=== PATIENT | female | born 1930 | race Caucasian/White ===

== ENCOUNTER 2016-08-15 11:36 | Emergency (ER) | payer MEDICARE, MEDICAID ==
[2016-08-15 12:10] LABS: #Basophils 0.1 thou/uL (0.0-0.2); #Eosinphils 0.4 thou/uL (0.0-0.7); #Lymphocytes 3.8 thou/uL (1.20-3.40); #Monocytes 0.6 thou/uL (0.11-0.59); #Neutrophils 5.4 thou/uL (1.40-6.50); %Basophils 1.2 % (0.0-1.0); %Eosinophils 3.4 % (0.0-10.0); %Monocytes 5.6 % (0.0-10.0); Hematocrit 37.1 % (36.0-47.0); Mean Platelet Volume 6.8 fL (7.4-10.4); Red Blood Cell (RBC) Count 3.84 mill/uL (4.20-5.40); White Blood Cell (WBC) Count 10.2 thou/uL (4.8-10.8)
[2016-08-15 12:25] LABS: ALT (SGPT) 11 U/L (0-55); AST (SGOT) 14 U/L (5-34); Alkaline Phosphatase 91 U/L (40-150); Anion Gap 17 mmol/L (10-20); BUN (Urea Nitrogen) 22 mg/dL (9.8-20.1); Bilirubin, Total 0.4 mg/dL (0.2-1.2); Calc. Creatinine Clearance 0 mL/min (70-130); Calcium 9.2 mg/dL (7.8-10.44); Carbon Dioxide 21 mmol/L (23-31); Chloride 107 mmol/L (98-107); Estimated GFR-MDRD 57; Globulin 3.3 g/dL (2.4-3.5)
[2016-08-15 12:27] LABS: Troponin I Less than 0.010 ng/mL (< 0.028)
== END 2016-08-15 12:44 | disposition home or self-care (01) ==
LOC: BURERS 11:36
DX: E11.65 Type 2 diabetes mellitus with hyperglycemia (principal); F03.90 Unspecified dementia, unspecified severity, without behavioral disturbance, psychotic disturbance, mood disturbance, and anxiety; Z86.73 Personal history of transient ischemic attack (TIA), and cerebral infarction without residual deficits; Z87.891 Personal history of nicotine dependence; Z79.82 Long term (current) use of aspirin; Z79.84 Long term (current) use of oral hypoglycemic drugs; Z79.899 Other long term (current) drug therapy
CPT/HCPCS: 36416; 80053; 82553; 84484; 85025; 93005

== ENCOUNTER 2016-09-11 14:03 | Emergency (ER) | payer MEDICARE, MEDICAID ==
[2016-09-11 14:37] LABS: #Basophils 0.1 thou/uL (0.0-0.2); #Eosinphils 0.7 thou/uL (0.0-0.7); #Lymphocytes 3.7 thou/uL (1.20-3.40); #Monocytes 0.9 thou/uL (0.11-0.59); #Neutrophils 5.4 thou/uL (1.40-6.50); %Basophils 1.3 % (0.0-1.0); %Eosinophils 6.1 % (0.0-10.0); %Monocytes 8.2 % (0.0-10.0); Hematocrit 34.9 % (36.0-47.0); Mean Platelet Volume 6.3 fL (7.4-10.4); Red Blood Cell (RBC) Count 3.77 mill/uL (4.20-5.40); White Blood Cell (WBC) Count 10.7 thou/uL (4.8-10.8)
[2016-09-11 14:40] LABS: Lactic Acid - Sepsis 1.9 mmol/L (0.5-2.2)
[2016-09-11 14:45] LABS: ALT (SGPT) 7 U/L (0-55); AST (SGOT) 13 U/L (5-34); Alkaline Phosphatase 86 U/L (40-150); Anion Gap 16 mmol/L (10-20); BUN (Urea Nitrogen) 31 mg/dL (9.8-20.1); Bilirubin, Total 0.3 mg/dL (0.2-1.2); Calc. Creatinine Clearance 0 mL/min (70-130); Calcium 8.8 mg/dL (7.8-10.44); Carbon Dioxide 21 mmol/L (23-31); Chloride 107 mmol/L (98-107); Estimated GFR-MDRD 55; Globulin 3.2 g/dL (2.4-3.5); Protein, Total 6.8 g/dL (5.8-8.1)
[2016-09-11 14:46] LABS: Troponin I Less than 0.010 ng/mL (< 0.028)
[2016-09-11 14:47] LABS: Bilirubin Negative (Negative); Blood, Urine Negative (Negative); Glucose, Urine (Dipstick) Negative (Negative); Ketone, Urine Negative (Negative); Nitrite Negative (Negative); Protein, Urine (Dipstick) Negative (Neg-Trace); Urobilinogen 0.2 mg/dL (0.2-1.0)
--- NOTE | 2016-09-11 16:51 | RAD ---
PORTABLE CHEST: Date: 09-11-16 FINDINGS: An AP portable film at 1443 is compared with a 12-18-15 study. The heart size is stable. There is no congestive change, pleural effusion or acute pulmonary infilt rate. The trachea is midline. The bony structures showed no acute change. IMPRESSION: No acute thoracic finding. POS: HOME
--- NOTE | 2016-09-11 16:55 | CT ---
CT OF THE BRAIN WITHOUT CONTRAST: Date: 09-11-16 Comparison: 12-18-15 done at [facility]. FINDINGS: An old left parietooccipital stroke is seen. The resulting encephalomalacia is fairly extensive and potentially impacts the visual cortex on the left side. Diffuse atrophy with mild ventricular dila tation is present, commensurate with the degree of atrophy present. There has been no private branch exchange service advisor t he interval. Some hyperlucent areas in the deep white matter are typical of chronic microvascular i schemia. There is no acute bleeding. No definite acute stroke or mass was seen. The calvarium dulce ears intact. IMPRESSION: Old left parietal occipital stroke with no acute findings. POS: HOME
== END 2016-09-11 15:25 | disposition home or self-care (01) ==
LOC: BURERS 14:03
DX: B34.9 Viral infection, unspecified (principal); F03.90 Unspecified dementia, unspecified severity, without behavioral disturbance, psychotic disturbance, mood disturbance, and anxiety; E11.9 Type 2 diabetes mellitus without complications; Z87.891 Personal history of nicotine dependence; Z79.82 Long term (current) use of aspirin; Z79.899 Other long term (current) drug therapy
CPT/HCPCS: 36416; 51701; 70450; 71010; 80053; 81003; 82553; 83605; 84443; 84484; 85025; 85652; 87040; 93005; 36415-59; A4353

== ENCOUNTER 2016-09-17 10:11 | Outpatient (CLI) | payer MEDICARE, MEDICAID ==
[2016-09-17 12:00] LABS: #Basophils 0.1 thou/uL (0.0-0.2); #Eosinphils 0.8 thou/uL (0.0-0.7); #Lymphocytes 3.3 thou/uL (1.20-3.40); #Monocytes 0.7 thou/uL (0.11-0.59); #Neutrophils 5.4 thou/uL (1.40-6.50); %Eosinophils 7.4 % (0.0-10.0); %Monocytes 6.6 % (0.0-10.0); Hematocrit 36.2 % (36.0-47.0); Mean Platelet Volume 5.7 fL (7.4-10.4); Red Blood Cell (RBC) Count 3.85 mill/uL (4.20-5.40); White Blood Cell (WBC) Count 10.3 thou/uL (4.8-10.8)
[2016-09-17 12:24] LABS: ALT (SGPT) 11 U/L (0-55); AST (SGOT) 13 U/L (5-34); Alkaline Phosphatase 91 U/L (40-150); Anion Gap 12 mmol/L (10-20); BUN (Urea Nitrogen) 27 mg/dL (9.8-20.1); Bilirubin, Total 0.3 mg/dL (0.2-1.2); Calc. Creatinine Clearance 0 mL/min (70-130); Calcium 9.1 mg/dL (7.8-10.44); Carbon Dioxide 27 mmol/L (23-31); Chloride 107 mmol/L (98-107); Estimated GFR-MDRD 48; Globulin 2.7 g/dL (2.4-3.5); LDL Cholesterol, Calculated 87 mg/dL; Protein, Total 6.4 g/dL (5.8-8.1)
[2016-09-17 12:37] LABS: Hemoglobin A1c 6.6 % (4.0-6.0)
== END 2016-09-17 10:12 | disposition home or self-care (01) ==
LOC: HPCALD 10:11
PROVIDERS: ATTEND Family Medicine
DX: E78.5 Hyperlipidemia, unspecified (principal); E03.9 Hypothyroidism, unspecified; E11.9 Type 2 diabetes mellitus without complications; I10 Essential (primary) hypertension
CPT/HCPCS: 36415; 80053; 80061; 83036; 84439; 84443; 85025

== ENCOUNTER 2018-03-18 12:45 | Emergency (ER) | payer MEDICARE, MEDICAID ==
[2018-03-18 13:20] LABS: #Basophils 0.1 thou/uL (0.0-0.2); #Eosinphils 0.6 thou/uL (0.0-0.7); #Lymphocytes 3.2 thou/uL (1.20-3.40); #Monocytes 0.7 thou/uL (0.11-0.59); #Neutrophils 4.9 thou/uL (1.40-6.50); %Basophils 1.3 % (0.0-1.0); %Eosinophils 6.7 % (0.0-10.0); %Lymphocytes 33.7 % (21.0-51.0); %Neutrophils 51.4 % (42.0-75.0); Mean Corpuscular HGB CONC 32.2 g/dL (32.0-36.0); Mean Corpuscular Hemoglobin 30.9 pg (27.0-31.0); Mean Platelet Volume 6.8 fL (7.4-10.4); Platelet Count 335 thou/uL (130-400); Red Blood Cell (RBC) Count 3.56 mill/uL (4.20-5.40); White Blood Cell (WBC) Count 9.6 thou/uL (4.8-10.8)
[2018-03-18 13:38] LABS: ALT (SGPT) 17 U/L (8-55); AST (SGOT) 17 U/L (5-34); Albumin 3.7 g/dL (3.4-4.8); Alkaline Phosphatase 126 U/L (40-150); Anion Gap 14 mmol/L (10-20); BUN (Urea Nitrogen) 26 mg/dL (9.8-20.1); Bilirubin, Total 0.5 mg/dL (0.2-1.2); Calc. Creatinine Clearance 0 mL/min (70-130); Calcium 9.2 mg/dL (7.8-10.44); Carbon Dioxide 25 mmol/L (23-31); Chloride 106 mmol/L (98-107); Estimated GFR-MDRD 39; Globulin 3.1 g/dL (2.4-3.5); Glucose 155 mg/dL (83-110); Protein, Total 6.8 g/dL (6.0-8.3); Sodium 140 mmol/L (136-145)
--- NOTE | 2018-03-18 18:18 | RAD ---
PORTABLE CHEST: 03/18/18 Comparison is made with the 09/30/17 study. The heart is normal in size. The aorta is somewhat tortuous as before. Right paratracheal density is assumed to be great vessels and has not changed in appearance from the prior study. The lungs are ailin ar. No acute infiltrate or effusion was seen. The right base was not seen as well as possible. IMPRESSION: No acute finding. POS: HOME
== END 2018-03-18 14:00 | disposition home or self-care (01) ==
LOC: BURERS 12:45
DX: R07.81 Pleurodynia (principal); F03.90 Unspecified dementia, unspecified severity, without behavioral disturbance, psychotic disturbance, mood disturbance, and anxiety; E11.9 Type 2 diabetes mellitus without complications; Z86.73 Personal history of transient ischemic attack (TIA), and cerebral infarction without residual deficits; Z87.891 Personal history of nicotine dependence; Z79.899 Other long term (current) drug therapy; Z79.82 Long term (current) use of aspirin
CPT/HCPCS: 36415; 71045; 80053; 82553; 84484; 85025; 93005

== ENCOUNTER 2019-02-08 09:12 | Inpatient (IN) | payer MEDICARE, MEDICAID ==
[2019-02-08] MEDS ORDERED: Ketorolac Tromethamine 30 MG/ML VIAL ONE (09:50)
[2019-02-08 10:09] LABS: #Basophils 0.1 thou/uL (0.0-0.2); #Eosinphils 0.1 thou/uL (0.0-0.7); #Lymphocytes 1.7 thou/uL (1.20-3.40); #Monocytes 0.7 thou/uL (0.11-0.59); #Neutrophils 16.2 thou/uL (1.40-6.50); %Basophils 0.4 % (0.0-1.0); %Eosinophils 0.7 % (0.0-10.0); %Lymphocytes 9.1 % (21.0-51.0); %Monocytes 3.6 % (0.0-10.0); %Neutrophils 86.3 % (42.0-75.0); Hemoglobin 11.5 g/dL (12.0-16.0); Mean Corpuscular Hemoglobin 30.4 pg (27.0-31.0); Mean Corpuscular Volume 98.3 fL (78.0-98.0); Mean Platelet Volume 6.3 fL (7.4-10.4); Platelet Count 277 thou/uL (130-400); RBC Distribution Width 12.1 % (11.5-14.5); Red Blood Cell (RBC) Count 3.77 mill/uL (4.20-5.40); White Blood Cell (WBC) Count 18.8 thou/uL (4.8-10.8)
[2019-02-08 10:24] LABS: ALT (SGPT) 15 U/L (8-55); AST (SGOT) 18 U/L (5-34); Albumin 3.6 g/dL (3.4-4.8); Alkaline Phosphatase 125 U/L (40-150); Anion Gap 16 mmol/L (10-20); BUN (Urea Nitrogen) 29 mg/dL (9.8-20.1); Bilirubin, Total 0.3 mg/dL (0.2-1.2); CK (CPK) 84 U/L (29-168); Calc. Creatinine Clearance 0 mL/min (70-130); Calcium 9.2 mg/dL (7.8-10.44); Carbon Dioxide 24 mmol/L (23-31); Chloride 105 mmol/L (98-107); Estimated GFR-MDRD 49; Glucose 210 mg/dL (83-110); Potassium 4.6 mmol/L (3.5-5.1); Protein, Total 6.6 g/dL (6.0-8.3); Sodium 140 mmol/L (136-145)
--- NOTE | 2019-02-08 10:58 | CT ---
Exam: Head CT without contrast HISTORY: Fall. Pain. COMPARISON: 09/30/2017 FINDINGS: Hemorrhage: No intraparenchymal hemorrhage or extra-axial hematoma. Brain parenchyma: Diffuse cerebral brain volume loss. Malacic changes involving the left occipital lo be. Additional mild malacic change involving the right parietal lobe medially. Remainder of the cerebrum demonstrates preservation of cortical thomas-white matter differentiation.Confluent white patrick er hypodensities due to chronic small vessel ischemic change. Ventricular system: Stable appearance and configuration. Calvarium: Intact. Sinuses and mastoid air cells: Adequate aeration. IMPRESSION: 1. No intracranial posttraumatic sequelae 2. Age-appropriate atrophy 3. Chronic small vessel ischemic changes white matter 4. Stable malacic change involving the left occipital lobe and right parietal lobe.
[2019-02-08] MEDS ORDERED: Ketorolac Tromethamine 30 MG/ML VIAL IVP PRN (12:25)
[2019-02-08] MEDS ORDERED: Sodium Chloride 0.9% 1,000 ML IV SCH ×2 (12:30→18:53)
[2019-02-08] MEDS ORDERED: Prevnar 13-Val Conj/PF 0.5 ML SYRINGE IM ONE (13:45)
[2019-02-08] MEDS ORDERED: Mupirocin 2% Ointment 22 GM Tube TOP SCH (15:00)
[2019-02-08 16:17] LABS: Bilirubin Negative (Negative); Blood, Urine Trace (Negative); Glucose, Urine (Dipstick) Negative (Negative); Leukocyte Moderate (Negative); Nitrite Positive (Negative); Protein, Urine (Dipstick) Trace mg/dL (Neg-Trace); Urobilinogen 0.2 mg/dL (Less than 2)
[2019-02-08 16:23] LABS: Clarity Cloudy (Clear)
[2019-02-08 16:24] LABS: Bacteria/HPF 3+ HPF (None Seen); RBC/HPF 0-3 HPF (0-3); Squamous Epithelial 0-3 HPF (0-3); WBC/HPF Greater Than 50 HPF (0-3)
--- NOTE | 2019-02-08 17:19 | RAD ---
LEFT KNEE FOUR VIEWS: Date: 02-08-19 FINDINGS: No fracture or joint effusion was seen. The joint space appears normal. Dense arteriosclerosis is see n in the distal SFA and popliteal arteries. IMPRESSION: No acute finding. POS: HOME
--- NOTE | 2019-02-08 17:23 | RAD ---
RIGHT HUMERUS TWO VIEWS: Date: 02-08-19 FINDINGS: A fracture is present through the surgical neck of the humerus. While the bone in the region is sligh tly lucent, I do not believe it is a pathologic fracture but just several fragments are involved. The re is relatively little displacement. IMPRESSION: Surgical neck fracture. POS: HOME
--- NOTE | 2019-02-08 17:24 | RAD ---
LEFT HAND THREE VIEWS: Date: 02-08-19 FINDINGS: Degenerative changes are seen in the IP joints of the fingers. No gross fracture was identified. The carpal bones and distal radius and ulna are seen incompletely, but there are no findings to strongly suggest fracture here. IMPRESSION: Degenerative changes but no acute findings. POS: HOME
--- NOTE | 2019-02-08 17:25 | RAD ---
RIGHT KNEE FOUR VIEWS: Date: 02-08-19 Comparison: Films of the left knee. FINDINGS: No fracture, dislocation or joint effusion was seen. Dense calcification of the distal SFA and poplit eal arteries is apparent. The joint surfaces were unremarkable. IMPRESSION: No acute finding. POS: HOME
[2019-02-08] MEDS ORDERED: Mupirocin 2% Ointment 22 GM Tube TOP PRN (17:32)
--- NOTE | 2019-02-08 17:35 | RAD ---
PELVIS: Date: 02-08-19 FINDINGS: A portable film was done at 1037. The sensitivity to fine detail is somewhat low. There is certainly no gross fractures apparent in the bony pelvis or hips. The hip joints were symmetrical. The pubic ri ngs appear intact and the synthesis shows no widening or off set. The sacrum and SI joints are evalua elsie less well, but what could be seen was unremarkable. IMPRESSION: Slightly lower sensitivity study showing no acute finding. POS: HOME
--- NOTE | 2019-02-08 17:49 | RAD ---
PORTABLE CHEST: Date: 02-08-19 An AP portable film at 1006 is compared with a 03-18-18 study. FINDINGS: The heart is normal in size given AP projection and shallow inspiration. Calcification is seen in the aortic arch. The lungs seem fully inflated. No lobar consolidation was seen. There is some slight el evation of the right hemidiaphragm, but this not a very deep breath. I would need to see a better ins piration film to rule in or out pathology in the right base. A fracture of the surgical neck of the r ight humerus is apparent on this film. IMPRESSION: Shallow inspiration which reduces sensitivity, particularly in the right base. Fracture of the surgic al neck of the right humerus. POS: HOME
[2019-02-08] MEDS ORDERED: Dextrose 5% in Water 1,000 ML IV PRN (18:50)
[2019-02-08] MEDS ORDERED: Dextrose 50% Abboject 50 ML SYRINGE SLOW IVP PRN (18:50)
[2019-02-08] MEDS: VIMPAT 50 MG PO SCH (20:47)
[2019-02-08] MEDS: Atorvastatin Calcium 40 MG TAB PO SCH (20:49)
[2019-02-08] MEDS: HYDROcodone/Acetaminophen 5/325 mg Tablet PO PRN (20:50)
[2019-02-08] MEDS: metFORMIN 500 MG TAB PO SCH (20:50)
[2019-02-08] MEDS ORDERED: levETIRAcetam 250 MG TAB PO SCH (21:00)
[2019-02-08] MEDS ORDERED: VIMPAT 50 MG PO SCH ×2 (21:00)
[2019-02-08] MEDS ORDERED: Atorvastatin Calcium 10 MG TAB PO SCH (21:00)
--- NOTE | 2019-02-09 03:39 | HP ---
PRIMARY CARE PHYSICIAN: Terrell Arciniega MD CHIEF COMPLAINT: Found down, with right humeral surgical neck fracture and leukocytosis. HISTORY OF PRESENT ILLNESS: Ms. Franz is an 88-year-old white female with multiple CVA with right hemiparesis, non-Hodgkin lymphoma with metastasis, diabetes mellitus, hypertension, and total care for end-stage dementia. She was on her usual state of health until 7:30 this morning when she was found down on the floor by her caregiver, she had urinated and defecated on herself, unsure if she had a seizure or fell from the bed. Her caregiver called [facility] to assess her condition, but due to possible neck injuries, EMS was summoned. At the ED, her vital signs showed BP of 167/88, pulse rate of 57, respirations of 20, unlabored. Her O2 saturation was 95% on room air, they found multiple abrasions on her extremities, she was slightly drowsy, but arousable. Her labs demonstrated WBC of 18.8, hemoglobin of 11, hematocrit of 37.1, platelet count of 277, neutrophils of 86.3. Comp met showed sodium of 140, potassium of 4.6, chloride of 105, carbon dioxide of 24, BUN of 29, creatinine of 1.07, glucose of 210, calcium of 9.2, AST of 18, ALT of 15. Creatine kinase was 84. Troponin was 0.026. Her urinalysis showed yellow cloudy urine with positive nitrite, moderate leukocyte esterase, wbc's greater than 50, with 3+ bacteria. She had a CT of the brain, which showed chronic small vessel ischemic white matter changes, stable malacic change involving the left occipital and right parietal lobes. Chest x-ray showed shallow inspiration, calcification seen on aortic arch, no lobar consolidation, slight elevation of right hemidiaphragm. Right humerus x-ray showed fracture on the surgical neck, with little displacement. The patient was placed on standard sling. Due to acute change on her condition and extent of her fracture and with her multiple comorbid condition, recommendation was to admit the patient. We will need to monitor for any infection, control of pain, monitor for further episodes of seizures and to assist caregiver on how to take care of the patient at home, she qualified for 2 midnights' stay. This afternoon, she appears comfortable except for discomfort on her right arm fracture and multiple abrasions. She denies any chest pain or shortness of breath. PAST MEDICAL HISTORY: 1. Multiple CVA.with right hemiparesis 2. History of seizure secondary to multiple CVA. 3. Hypertension. 4. Diabetes mellitus. 5. Moderate left carotid stenosis. 6. Non-Hodgkin lymphoma with metastasis. 7. Hyperlipidemia. 8. Chronic diastolic heart failure. 9. History of tobacco abuse. 10. Right eye blindness. 11. Chronic kidney disease, stage 2. 12. Mild mitral and tricuspid valve regurgitation. 13. Advanced end-stage dementia, total care. MEDICATIONS: 1. Aspirin 81 mg daily. 2. Lipitor 40 mg at bedtime. 3. Plavix 75 mg daily. 4. Lisinopril 5 mg daily. 5. Zoloft. 6. Imdur 60 mg daily. 7. Synthroid 50 mcg daily. 8. Metformin 500 mg at bedtime. 9. Vimpat 50 mg b.i.d. 10. Seroquel 25 mg daily. ALLERGIES: NO KNOWN DRUG ALLERGIES. PAST SURGICAL HISTORY: Hysterectomy. FAMILY HISTORY: Negative for diabetes mellitus or heart disease. SOCIAL HISTORY: The patient lives at home with 24-hour caregiver, her daughter is her Sujatha Longoria is her medical [id number]. The patient is a DNAR. She denies tobacco, alcohol, or drug use. REVIEW OF SYSTEMS: CONSTITUTIONAL: Negative for weight gain or loss, negative for fever. SKIN: Positive for multiple abrasions, skin tear, bruising. Negative for rash. EYES: Positive for right eye blindness. Negative for eye discharge. EAR, NOSE, AND THROAT: Positive for hoarseness, positive for left-sided cervical mass with tenderness. CARDIOVASCULAR: Negative for palpitation, dyspnea, or orthopnea. RESPIRATORY: Negative for wheezing. Negative for shortness of breath, has occasional cough. GASTROINTESTINAL: Negative for abdominal pain, nausea, vomiting, or diarrhea. GENITOURINARY: Positive for urgency and frequency. Negative for dysuria. MUSCULOSKELETAL: Positive for right arm pain secondary to fracture, with decreased range of motion. Positive for gait instability and history of multiple falls. PHYSICAL EXAMINATION: VITAL SIGNS: Blood pressure of 121/71, pulse rate of 53, temperature of 97.3, RR of 18, O2 saturation 95% on room air. GENERAL: The patient is awake, oriented to herself only, not in distress. HEENT: Normocephalic, positive for supraorbital hematoma on the left. Pupils are equal, reactive to light. NECK: Negative for JVD. Positive for left cervical mass, slightly tender. LUNGS: Symmetrical expansion, clear to auscultation bilaterally. HEART: Regular rate, rhythm. Positive for 2/6 systolic murmur over midsternal area. ABDOMEN: Obese, soft, nontender. Normoactive bowel sounds. Negative for CVA tenderness. EXTREMITIES: Positive for right arm pain and tenderness, decreased range of motion. SKIN: Positive for multiple bruising, abrasion on right wrist, left 1st digit, left outer leg and bilateral knees. PERIPHERAL VASCULAR: Radial pulses palpable bilaterally. PSYCH: The patient is alert, oriented to herself. LABS AND X-RAYS: Reviewed. ASSESSMENT: 1. Unwitnessed fall. 2. Right surgical neck fracture of the humerus with mild displacement. 3. Leukocytosis. 4. Pyuria. 5. Multiple cerebrovascular accidents with right hemiparesis. 6. Seizures following multiple cerebrovascular accidents. 7. Right eye blindness. 8. Non-Hodgkin lymphoma with metastasis. 9. Hypertension. 10. Diabetes mellitus. 11. Hyperlipidemia. 12. Former smoker. 13. Total care for end-stage dementia. PLAN: 1. Admitted for acute care to monitor for infection, further episodes of seizures and control of pain secondary to right humeral fracture. 2. Refer the patient to Physical and Occupational Therapy for evaluation and treatment. 3. Possible orthopedist consult due to the extent of the humeral fracture. 4. Routine nursing care. 5. DVT prophylaxis with SCDs. 6. The patient may require additional home care with physical therapy when she gets discharge. livestock nutrition territory manager to assist with discharge planning. 7. Transfer of care to her PCP, Dr. Terrell Arciniega in a.m. Job ID: [id number] [facility] [place] [facility]
[2019-02-09 05:27] LABS: #Basophils 0.1 thou/uL (0.0-0.2); #Eosinphils 0.3 thou/uL (0.0-0.7); #Lymphocytes 2.5 thou/uL (1.20-3.40); #Monocytes 0.6 thou/uL (0.11-0.59); #Neutrophils 4.4 thou/uL (1.40-6.50); %Basophils 0.9 % (0.0-1.0); %Eosinophils 3.6 % (0.0-10.0); %Lymphocytes 31.9 % (21.0-51.0); %Monocytes 7.7 % (0.0-10.0); %Neutrophils 55.9 % (42.0-75.0); Hemoglobin 9.4 g/dL (12.0-16.0); Mean Corpuscular HGB CONC 31.6 g/dL (32.0-36.0); Mean Corpuscular Hemoglobin 30.5 pg (27.0-31.0); Mean Corpuscular Volume 96.6 fL (78.0-98.0); Mean Platelet Volume 6.7 fL (7.4-10.4); Platelet Count 226 thou/uL (130-400); RBC Distribution Width 12.3 % (11.5-14.5); Red Blood Cell (RBC) Count 3.08 mill/uL (4.20-5.40); White Blood Cell (WBC) Count 7.9 thou/uL (4.8-10.8)
[2019-02-09] MEDS: Levothyroxine Sodium 50 MCG TAB PO SCH (05:29)
[2019-02-09 05:36] LABS: Anion Gap 13 mmol/L (10-20); BUN (Urea Nitrogen) 29 mg/dL (9.8-20.1); Calc. Creatinine Clearance 0 mL/min (70-130); Calcium 8.4 mg/dL (7.8-10.44); Carbon Dioxide 23 mmol/L (23-31); Chloride 110 mmol/L (98-107); Estimated GFR-MDRD 56; Glucose 170 mg/dL (83-110); Potassium 4.2 mmol/L (3.5-5.1); Sodium 142 mmol/L (136-145)
[2019-02-09] MEDS: HumaLOG 300 UNITS/3 ML VIAL SC PRN ×3 (08:05→17:40)
[2019-02-09] MEDS: Clopidogrel Bisulfate 75 MG TAB PO SCH (08:06)
[2019-02-09] MEDS: Ezetimibe 10 MG TAB PO SCH (08:07)
[2019-02-09] MEDS: Aspirin 81 mg Enteric Coated Tablet PO SCH (08:07)
[2019-02-09] MEDS: Lisinopril 10 MG TAB PO SCH (08:08)
[2019-02-09] MEDS: VIMPAT 50 MG PO SCH ×2 (08:12→20:08)
[2019-02-09] MEDS ORDERED: Lisinopril 5 MG TAB PO SCH (09:00)
[2019-02-09 10:26] VITALS: BMI 25.6
[2019-02-09] MEDS: Atorvastatin Calcium 40 MG TAB PO SCH (19:55)
[2019-02-09] MEDS: metFORMIN 500 MG TAB PO SCH (19:55)
[2019-02-10] MEDS: Levothyroxine Sodium 50 MCG TAB PO SCH (05:53)
[2019-02-10] MEDS ORDERED: Polyethylene Glycol 3350 17 GM Packet PO PRN (07:42)
[2019-02-10] MEDS: Lisinopril 10 MG TAB PO SCH (08:04)
[2019-02-10] MEDS: Ezetimibe 10 MG TAB PO SCH (08:08)
[2019-02-10] MEDS: Aspirin 81 mg Enteric Coated Tablet PO SCH (08:08)
[2019-02-10] MEDS: Clopidogrel Bisulfate 75 MG TAB PO SCH (08:08)
[2019-02-10] MEDS: VIMPAT 50 MG PO SCH ×2 (08:08→21:02)
[2019-02-10] MEDS: HumaLOG 300 UNITS/3 ML VIAL SC PRN ×3 (08:09→18:17)
[2019-02-10] MEDS: HYDROcodone/Acetaminophen 5/325 mg Tablet PO PRN ×2 (08:46→21:07)
[2019-02-10] MEDS: metFORMIN 500 MG TAB PO SCH (21:03)
[2019-02-10] MEDS: Atorvastatin Calcium 40 MG TAB PO SCH (21:03)
[2019-02-11] MEDS: Levothyroxine Sodium 50 MCG TAB PO SCH (05:35)
[2019-02-11] MEDS: Aspirin 81 mg Enteric Coated Tablet PO SCH (08:08)
[2019-02-11] MEDS: Clopidogrel Bisulfate 75 MG TAB PO SCH (08:10)
[2019-02-11] MEDS: Ezetimibe 10 MG TAB PO SCH (08:10)
[2019-02-11] MEDS: Lisinopril 10 MG TAB PO SCH (08:10)
[2019-02-11] MEDS: HumaLOG 300 UNITS/3 ML VIAL SC PRN ×3 (08:11→18:44)
[2019-02-11] MEDS: VIMPAT 50 MG PO SCH ×3 (09:00→21:53)
[2019-02-11 19:04] VITALS: BP 160/80; TEMP 98.3
[2019-02-11] MEDS: metFORMIN 500 MG TAB PO SCH (21:52)
[2019-02-11] MEDS: Atorvastatin Calcium 40 MG TAB PO SCH (21:52)
[2019-02-11] MEDS: HYDROcodone/Acetaminophen 5/325 mg Tablet PO PRN (22:04)
== END 2019-02-11 23:08 | disposition swing bed (61) | DRG 563 ==
LOC: BURERS 09:12 → BURMED 11:18
PROVIDERS: ADMIT Family Medicine; ATTEND Family Medicine
DX: S42.211A Unspecified displaced fracture of surgical neck of right humerus, initial encounter for closed fracture (principal); I69.351 Hemiplegia and hemiparesis following cerebral infarction affecting right dominant side; I50.32 Chronic diastolic (congestive) heart failure; I13.0 Hypertensive heart and chronic kidney disease with heart failure and stage 1 through stage 4 chronic kidney disease, or unspecified chronic kidney disease; N39.0 Urinary tract infection, site not specified; C85.90 Non-Hodgkin lymphoma, unspecified, unspecified site; C79.9 Secondary malignant neoplasm of unspecified site; Z66 Do not resuscitate; E78.5 Hyperlipidemia, unspecified; N18.2 Chronic kidney disease, stage 2 (mild); E11.22 Type 2 diabetes mellitus with diabetic chronic kidney disease; F03.90 Unspecified dementia, unspecified severity, without behavioral disturbance, psychotic disturbance, mood disturbance, and anxiety; R56.9 Unspecified convulsions; H54.40 Blindness, one eye, unspecified eye; W19.XXXA Unspecified fall, initial encounter; Z79.82 Long term (current) use of aspirin; Z79.84 Long term (current) use of oral hypoglycemic drugs; Z79.02 Long term (current) use of antithrombotics/antiplatelets; Z90.710 Acquired absence of both cervix and uterus; I69.398 Other sequelae of cerebral infarction; Z87.891 Personal history of nicotine dependence
CPT/HCPCS: 36415; 36416; 70450; 71045; 72170; 80048; 80053; 81001; 82550; 84484; 85025; 87077; 87086; 87186; 90471; 90670; 93005; 96361; 96374; G0009; J1885

== ENCOUNTER 2019-02-11 21:46 | Inpatient (IN) | payer MEDICARE, OTHER ==
[2019-02-11 23:33] VITALS: BMI 25.7
[2019-02-12] MEDS ORDERED: Dextrose 50% Abboject 50 ML SYRINGE SLOW IVP PRN (00:11)
[2019-02-12] MEDS ORDERED: Dextrose 5% in Water 1,000 ML IV PRN (00:11)
[2019-02-12] MEDS ORDERED: Ketorolac Tromethamine 30 MG/ML VIAL IVP PRN (00:14)
[2019-02-12] MEDS ORDERED: Mupirocin 2% Ointment 22 GM Tube TOP PRN (00:14)
[2019-02-12] MEDS: Levothyroxine Sodium 50 MCG TAB PO SCH (05:42)
[2019-02-12] MEDS: HumaLOG 300 UNITS/3 ML VIAL SC PRN ×3 (09:41→18:21)
[2019-02-12] MEDS: VIMPAT 50 MG PO SCH ×2 (09:43→20:56)
[2019-02-12] MEDS: Lisinopril 10 MG TAB PO SCH (09:45)
[2019-02-12] MEDS: Isosorbide Mononitrate (ER) 30 MG TAB PO SCH (09:45)
[2019-02-12] MEDS: Ezetimibe 10 MG TAB PO SCH (09:45)
[2019-02-12] MEDS: Cephalexin 250 MG CAP PO SCH ×2 (09:46→20:56)
[2019-02-12] MEDS: Clopidogrel Bisulfate 75 MG TAB PO SCH (09:46)
[2019-02-12] MEDS: Aspirin 81 mg Enteric Coated Tablet PO SCH (09:47)
[2019-02-12] MEDS: Atorvastatin Calcium 40 MG TAB PO SCH (20:56)
[2019-02-12] MEDS: HYDROcodone/Acetaminophen 5/325 mg Tablet PO PRN (20:57)
[2019-02-12] MEDS: metFORMIN 500 MG TAB PO SCH (20:57)
[2019-02-13] MEDS ORDERED: Levothyroxine Sodium 50 MCG TAB ONE (05:30)
[2019-02-13] MEDS: Levothyroxine Sodium 50 MCG TAB PO SCH (05:35)
[2019-02-13] MEDS: HumaLOG 300 UNITS/3 ML VIAL SC PRN ×2 (08:25→13:32)
[2019-02-13] MEDS: Cephalexin 250 MG CAP PO SCH ×2 (08:26→20:04)
[2019-02-13] MEDS: Ezetimibe 10 MG TAB PO SCH (08:27)
[2019-02-13] MEDS: Isosorbide Mononitrate (ER) 30 MG TAB PO SCH (08:27)
[2019-02-13] MEDS: Lisinopril 10 MG TAB PO SCH (08:28)
[2019-02-13] MEDS: Clopidogrel Bisulfate 75 MG TAB PO SCH (08:28)
[2019-02-13] MEDS: Aspirin 81 mg Enteric Coated Tablet PO SCH (08:28)
[2019-02-13] MEDS: VIMPAT 50 MG PO SCH ×2 (08:34→20:04)
[2019-02-13] MEDS: Atorvastatin Calcium 40 MG TAB PO SCH (20:04)
[2019-02-13] MEDS: metFORMIN 500 MG TAB PO SCH (20:04)
[2019-02-13] MEDS: HYDROcodone/Acetaminophen 5/325 mg Tablet PO PRN (23:33)
[2019-02-14] MEDS: Levothyroxine Sodium 50 MCG TAB PO SCH (05:21)
[2019-02-14] MEDS: HumaLOG 300 UNITS/3 ML VIAL SC PRN ×3 (09:22→12:35)
[2019-02-14] MEDS: Clopidogrel Bisulfate 75 MG TAB PO SCH (09:23)
[2019-02-14] MEDS: Aspirin 81 mg Enteric Coated Tablet PO SCH (09:23)
[2019-02-14] MEDS: Lisinopril 10 MG TAB PO SCH (09:23)
[2019-02-14] MEDS: Cephalexin 250 MG CAP PO SCH ×2 (09:27→21:39)
[2019-02-14] MEDS: Ezetimibe 10 MG TAB PO SCH (09:27)
[2019-02-14] MEDS: Isosorbide Mononitrate (ER) 30 MG TAB PO SCH (09:28)
[2019-02-14] MEDS: VIMPAT 50 MG PO SCH ×2 (10:19→21:39)
[2019-02-14] MEDS: HYDROcodone/Acetaminophen 5/325 mg Tablet PO PRN ×2 (11:54→21:40)
[2019-02-14] MEDS: Polyethylene Glycol 3350 17 GM Packet PO PRN (11:55)
[2019-02-14] MEDS: metFORMIN 500 MG TAB PO SCH (21:39)
[2019-02-14] MEDS: Atorvastatin Calcium 40 MG TAB PO SCH (21:39)
[2019-02-15] MEDS: Levothyroxine Sodium 50 MCG TAB PO SCH (06:12)
[2019-02-15] MEDS: HYDROcodone/Acetaminophen 5/325 mg Tablet PO PRN ×2 (06:20→19:56)
[2019-02-15] MEDS: HumaLOG 300 UNITS/3 ML VIAL SC PRN ×2 (08:17→13:02)
[2019-02-15] MEDS: Aspirin 81 mg Enteric Coated Tablet PO SCH (08:32)
[2019-02-15] MEDS: Isosorbide Mononitrate (ER) 30 MG TAB PO SCH (08:33)
[2019-02-15] MEDS: Lisinopril 10 MG TAB PO SCH (08:33)
[2019-02-15] MEDS: Clopidogrel Bisulfate 75 MG TAB PO SCH (08:33)
[2019-02-15] MEDS: Ezetimibe 10 MG TAB PO SCH (08:35)
[2019-02-15] MEDS: Cephalexin 250 MG CAP PO SCH ×2 (08:35→19:55)
[2019-02-15] MEDS: VIMPAT 50 MG PO SCH ×2 (10:46→19:48)
[2019-02-15] MEDS: Polyethylene Glycol 3350 17 GM Packet PO PRN (19:48)
[2019-02-15] MEDS: metFORMIN 500 MG TAB PO SCH (19:56)
[2019-02-15] MEDS: Atorvastatin Calcium 40 MG TAB PO SCH (19:56)
[2019-02-16] MEDS: HYDROcodone/Acetaminophen 5/325 mg Tablet PO PRN ×2 (06:34→20:54)
[2019-02-16] MEDS: Levothyroxine Sodium 50 MCG TAB PO SCH (06:37)
[2019-02-16] MEDS ORDERED: Milk Of Magnesia 30 ML UDCUP PO PRN (07:18)
[2019-02-16] MEDS: HumaLOG 300 UNITS/3 ML VIAL SC PRN ×2 (08:10→12:59)
[2019-02-16] MEDS: Clopidogrel Bisulfate 75 MG TAB PO SCH (09:10)
[2019-02-16] MEDS: Aspirin Chewable 81 MG TAB PO SCH (09:10)
[2019-02-16] MEDS: Lisinopril 10 MG TAB PO SCH (09:11)
[2019-02-16] MEDS: Docusate 100 MG CAP PO SCH ×2 (09:15→20:58)
[2019-02-16] MEDS: Ezetimibe 10 MG TAB PO SCH (09:16)
[2019-02-16] MEDS: Polyethylene Glycol 3350 17 GM Packet PO SCH (09:20)
[2019-02-16] MEDS: VIMPAT 50 MG PO SCH ×2 (10:16→20:51)
[2019-02-16] MEDS: Pantoprazole 40 MG GRANULES PACKET PO SCH (11:11)
[2019-02-16] MEDS: Aspirin 81 mg Enteric Coated Tablet PO SCH (12:40)
[2019-02-16] MEDS: Cephalexin 250 MG CAP PO SCH (12:40)
[2019-02-16] MEDS: Isosorbide Mononitrate (ER) 30 MG TAB PO SCH (12:40)
[2019-02-16] MEDS: Atorvastatin Calcium 40 MG TAB PO SCH (20:58)
[2019-02-16] MEDS: metFORMIN 500 MG TAB PO SCH (20:58)
[2019-02-16] MEDS ORDERED: Amoxicillin/Potassium Clav 500 MG TAB PO SCH (21:00)
[2019-02-16] MEDS ORDERED: Amoxicillin 125 mg/5 ml Oral Suspension ONE (21:14)
[2019-02-16] MEDS ORDERED: AMOXICILLIN PO ONE (22:55)
[2019-02-16] MEDS: AMOXICILLIN PO SCH (22:55)
[2019-02-16] MEDS: [UNRECOGNIZED DRUG - OTHER] PO SCH (22:55)
[2019-02-16] MEDS ORDERED: CLAVULANATE PO ONE (22:55)
[2019-02-17] MEDS: Levothyroxine Sodium 50 MCG TAB PO SCH (07:25)
[2019-02-17] MEDS: Polyethylene Glycol 3350 17 GM Packet PO SCH (08:33)
[2019-02-17] MEDS: Isosorbide Mononitrate 20 MG TAB PO SCH (08:34)
[2019-02-17] MEDS: Docusate 100 MG CAP PO SCH ×2 (08:34→22:25)
[2019-02-17] MEDS: Ezetimibe 10 MG TAB PO SCH (08:35)
[2019-02-17] MEDS: Lisinopril 10 MG TAB PO SCH (08:35)
[2019-02-17] MEDS: Clopidogrel Bisulfate 75 MG TAB PO SCH (08:35)
[2019-02-17] MEDS: Pantoprazole 40 MG GRANULES PACKET PO SCH (08:36)
[2019-02-17] MEDS: Aspirin Chewable 81 MG TAB PO SCH (08:36)
[2019-02-17] MEDS ORDERED: CLAVULANATE PO ONE ×2 (08:44→22:26)
[2019-02-17] MEDS: [UNRECOGNIZED DRUG - OTHER] PO SCH ×2 (08:44→22:26)
[2019-02-17] MEDS ORDERED: AMOXICILLIN PO ONE ×2 (08:44→22:26)
[2019-02-17] MEDS: AMOXICILLIN PO SCH ×2 (08:44→22:26)
[2019-02-17] MEDS: VIMPAT 50 MG PO SCH ×2 (09:30→22:24)
[2019-02-17] MEDS: HumaLOG 300 UNITS/3 ML VIAL SC PRN ×3 (09:36→18:28)
[2019-02-17] MEDS: metFORMIN 500 MG TAB PO SCH (22:24)
[2019-02-17] MEDS: Atorvastatin Calcium 40 MG TAB PO SCH (22:25)
[2019-02-17] MEDS: HYDROcodone/Acetaminophen 5/325 mg Tablet PO PRN (22:25)
[2019-02-18] MEDS: Polyethylene Glycol 3350 17 GM Packet PO SCH (08:33)
[2019-02-18] MEDS: Ezetimibe 10 MG TAB PO SCH (08:33)
[2019-02-18] MEDS: Levothyroxine Sodium 50 MCG TAB PO SCH (08:34)
[2019-02-18] MEDS: Isosorbide Mononitrate 20 MG TAB PO SCH (08:34)
[2019-02-18] MEDS: Docusate 100 MG CAP PO SCH ×2 (08:35→21:29)
[2019-02-18] MEDS: Clopidogrel Bisulfate 75 MG TAB PO SCH (08:36)
[2019-02-18] MEDS: Aspirin Chewable 81 MG TAB PO SCH (08:36)
[2019-02-18] MEDS: VIMPAT 50 MG PO SCH ×2 (08:37→21:54)
[2019-02-18] MEDS: Lisinopril 10 MG TAB PO SCH (08:37)
[2019-02-18] MEDS ORDERED: AMOXICILLIN PO ONE (09:40)
[2019-02-18] MEDS ORDERED: CLAVULANATE PO ONE (09:40)
[2019-02-18] MEDS: [UNRECOGNIZED DRUG - OTHER] PO SCH (09:40)
[2019-02-18] MEDS: AMOXICILLIN PO SCH ×2 (09:40→21:57)
[2019-02-18] MEDS: Pantoprazole 40 MG GRANULES PACKET PO SCH (09:41)
[2019-02-18] MEDS: HumaLOG 300 UNITS/3 ML VIAL SC PRN ×2 (09:46→17:56)
[2019-02-18] MEDS: Atorvastatin Calcium 40 MG TAB PO SCH (21:28)
[2019-02-18] MEDS: metFORMIN 500 MG TAB PO SCH (21:29)
[2019-02-18] MEDS: CLAVULANATE PO SCH (21:57)
[2019-02-19] MEDS: Levothyroxine Sodium 50 MCG TAB PO SCH (06:27)
[2019-02-19] MEDS: Polyethylene Glycol 3350 17 GM Packet PO SCH (09:12)
[2019-02-19] MEDS: HumaLOG 300 UNITS/3 ML VIAL SC PRN ×2 (09:13→13:53)
[2019-02-19] MEDS: Docusate 100 MG CAP PO SCH ×2 (09:18→20:54)
[2019-02-19] MEDS: Isosorbide Mononitrate 20 MG TAB PO SCH (09:18)
[2019-02-19] MEDS: Pantoprazole 40 MG GRANULES PACKET PO SCH (09:18)
[2019-02-19] MEDS: Clopidogrel Bisulfate 75 MG TAB PO SCH (09:18)
[2019-02-19] MEDS: Ezetimibe 10 MG TAB PO SCH (09:19)
[2019-02-19] MEDS: Lisinopril 10 MG TAB PO SCH (09:20)
[2019-02-19] MEDS: AMOXICILLIN PO SCH ×2 (09:21→20:55)
[2019-02-19] MEDS: Aspirin Chewable 81 MG TAB PO SCH (09:21)
[2019-02-19] MEDS: CLAVULANATE PO SCH ×2 (09:21→20:55)
[2019-02-19] MEDS: VIMPAT 50 MG PO SCH ×2 (09:28→20:54)
[2019-02-19] MEDS: metFORMIN 500 MG TAB PO SCH (20:54)
[2019-02-19] MEDS: Atorvastatin Calcium 40 MG TAB PO SCH (20:54)
[2019-02-20] MEDS: HYDROcodone/Acetaminophen 5/325 mg Tablet PO PRN ×3 (01:46→22:34)
[2019-02-20] MEDS: Levothyroxine Sodium 50 MCG TAB PO SCH (06:47)
[2019-02-20] MEDS: Polyethylene Glycol 3350 17 GM Packet PO SCH (11:21)
[2019-02-20] MEDS: Isosorbide Mononitrate 20 MG TAB PO SCH (11:21)
[2019-02-20] MEDS: Aspirin Chewable 81 MG TAB PO SCH (11:22)
[2019-02-20] MEDS: Docusate 100 MG CAP PO SCH ×2 (11:24→21:47)
[2019-02-20] MEDS: Lisinopril 10 MG TAB PO SCH (11:24)
[2019-02-20] MEDS: Ezetimibe 10 MG TAB PO SCH (11:24)
[2019-02-20] MEDS: Clopidogrel Bisulfate 75 MG TAB PO SCH (11:26)
[2019-02-20] MEDS: AMOXICILLIN PO SCH (11:31)
[2019-02-20] MEDS: CLAVULANATE PO SCH (11:31)
[2019-02-20] MEDS: Pantoprazole 40 MG GRANULES PACKET PO SCH (11:31)
[2019-02-20] MEDS: VIMPAT 50 MG PO SCH ×2 (11:36→21:52)
[2019-02-20] MEDS: HumaLOG 300 UNITS/3 ML VIAL SC PRN (14:25)
[2019-02-20] MEDS: metFORMIN 500 MG TAB PO SCH (21:47)
[2019-02-20] MEDS: Atorvastatin Calcium 40 MG TAB PO SCH (21:47)
[2019-02-20] MEDS: Amoxicillin/Potassium Clav 250 mg/5 ml Oral Suspension PO SCH (21:49)
[2019-02-21] MEDS: Levothyroxine Sodium 50 MCG TAB PO SCH (06:05)
[2019-02-21] MEDS: Acetaminophen 325 MG TAB PO PRN ×2 (06:05→15:14)
[2019-02-21] MEDS: Amoxicillin/Potassium Clav 250 mg/5 ml Oral Suspension PO SCH (09:09)
[2019-02-21] MEDS: Polyethylene Glycol 3350 17 GM Packet PO SCH (09:09)
[2019-02-21] MEDS: VIMPAT 50 MG PO SCH ×2 (09:12→21:12)
[2019-02-21] MEDS: Ezetimibe 10 MG TAB PO SCH (09:13)
[2019-02-21] MEDS: Aspirin Chewable 81 MG TAB PO SCH (09:13)
[2019-02-21] MEDS: Clopidogrel Bisulfate 75 MG TAB PO SCH (09:15)
[2019-02-21] MEDS: Lisinopril 10 MG TAB PO SCH (09:15)
[2019-02-21] MEDS: Docusate 100 MG CAP PO SCH ×2 (09:15→21:13)
[2019-02-21] MEDS: Isosorbide Mononitrate 20 MG TAB PO SCH (09:15)
[2019-02-21] MEDS: Pantoprazole 40 MG GRANULES PACKET PO SCH (09:15)
[2019-02-21] MEDS: HumaLOG 300 UNITS/3 ML VIAL SC PRN ×3 (09:16→18:41)
[2019-02-21] MEDS: Atorvastatin Calcium 40 MG TAB PO SCH (21:14)
[2019-02-21] MEDS: metFORMIN 500 MG TAB PO SCH (21:15)
[2019-02-21] MEDS: HYDROcodone/Acetaminophen 5/325 mg Tablet PO PRN (23:57)
[2019-02-22] MEDS: Levothyroxine Sodium 50 MCG TAB PO SCH (06:39)
[2019-02-22] MEDS: VIMPAT 50 MG PO SCH ×2 (08:47→20:38)
[2019-02-22] MEDS: Polyethylene Glycol 3350 17 GM Packet PO SCH (08:48)
[2019-02-22] MEDS: Isosorbide Mononitrate 20 MG TAB PO SCH (08:49)
[2019-02-22] MEDS: Ezetimibe 10 MG TAB PO SCH (08:49)
[2019-02-22] MEDS: Lisinopril 10 MG TAB PO SCH (08:50)
[2019-02-22] MEDS: Pantoprazole 40 MG GRANULES PACKET PO SCH (08:51)
[2019-02-22] MEDS: Aspirin Chewable 81 MG TAB PO SCH (08:51)
[2019-02-22] MEDS: Clopidogrel Bisulfate 75 MG TAB PO SCH (08:51)
[2019-02-22] MEDS: Docusate 100 MG CAP PO SCH ×2 (08:52→20:46)
[2019-02-22] MEDS: HumaLOG 300 UNITS/3 ML VIAL SC PRN ×2 (13:37→17:33)
[2019-02-22] MEDS: Acetaminophen 325 MG TAB PO PRN (16:04)
[2019-02-22] MEDS ORDERED: HYDROcodone/Acetaminophen 5/325 mg Tablet PO PRN (17:23)
[2019-02-22] MEDS: Atorvastatin Calcium 40 MG TAB PO SCH (20:37)
[2019-02-22] MEDS: metFORMIN 500 MG TAB PO SCH (20:39)
[2019-02-23] MEDS: Levothyroxine Sodium 50 MCG TAB PO SCH (05:21)
[2019-02-23] MEDS: HumaLOG 300 UNITS/3 ML VIAL SC PRN ×2 (08:52→12:49)
[2019-02-23] MEDS: VIMPAT 50 MG PO SCH ×2 (08:52→20:44)
[2019-02-23] MEDS: Aspirin Chewable 81 MG TAB PO SCH (08:54)
[2019-02-23] MEDS: Isosorbide Mononitrate 20 MG TAB PO SCH (08:56)
[2019-02-23] MEDS: Ezetimibe 10 MG TAB PO SCH (08:57)
[2019-02-23] MEDS: Clopidogrel Bisulfate 75 MG TAB PO SCH (08:58)
[2019-02-23] MEDS: metFORMIN 500 MG TAB PO SCH ×2 (08:59→20:35)
[2019-02-23] MEDS: Pantoprazole 40 MG GRANULES PACKET PO SCH (09:00)
[2019-02-23] MEDS: Polyethylene Glycol 3350 17 GM Packet PO SCH (09:03)
[2019-02-23] MEDS: Docusate 100 MG CAP PO SCH ×2 (09:04→20:35)
[2019-02-23] MEDS: Lisinopril 10 MG TAB PO SCH (09:05)
[2019-02-23] MEDS: Acetaminophen 325 MG TAB PO PRN (09:08)
[2019-02-23] MEDS: Atorvastatin Calcium 40 MG TAB PO SCH (20:35)
[2019-02-24] MEDS: Levothyroxine Sodium 50 MCG TAB PO SCH (05:26)
[2019-02-24] MEDS: Isosorbide Mononitrate 20 MG TAB PO SCH (12:52)
[2019-02-24] MEDS: metFORMIN 500 MG TAB PO SCH ×2 (12:52→20:04)
[2019-02-24] MEDS: Ezetimibe 10 MG TAB PO SCH (12:53)
[2019-02-24] MEDS: Lisinopril 10 MG TAB PO SCH (12:53)
[2019-02-24] MEDS: Clopidogrel Bisulfate 75 MG TAB PO SCH (12:54)
[2019-02-24] MEDS: Aspirin Chewable 81 MG TAB PO SCH (12:55)
[2019-02-24] MEDS: Pantoprazole 40 MG GRANULES PACKET PO SCH (12:55)
[2019-02-24] MEDS: VIMPAT 50 MG PO SCH ×2 (12:55→20:01)
[2019-02-24] MEDS: Docusate 100 MG CAP PO SCH ×2 (12:55→20:04)
[2019-02-24] MEDS: Polyethylene Glycol 3350 17 GM Packet PO SCH (13:04)
[2019-02-24] MEDS: Atorvastatin Calcium 40 MG TAB PO SCH (20:04)
[2019-02-24] MEDS: Acetaminophen 325 MG TAB PO PRN (20:04)
[2019-02-25] MEDS: Levothyroxine Sodium 50 MCG TAB PO SCH (06:25)
[2019-02-25] MEDS: VIMPAT 50 MG PO SCH ×2 (11:47→20:54)
[2019-02-25] MEDS: Docusate 100 MG CAP PO SCH ×2 (11:48→20:53)
[2019-02-25] MEDS: Polyethylene Glycol 3350 17 GM Packet PO SCH (11:48)
[2019-02-25] MEDS: Lisinopril 10 MG TAB PO SCH (11:49)
[2019-02-25] MEDS: Aspirin Chewable 81 MG TAB PO SCH (11:50)
[2019-02-25] MEDS: metFORMIN 500 MG TAB PO SCH ×2 (11:51→20:53)
[2019-02-25] MEDS: Ezetimibe 10 MG TAB PO SCH (11:51)
[2019-02-25] MEDS: Clopidogrel Bisulfate 75 MG TAB PO SCH (11:53)
[2019-02-25] MEDS: Pantoprazole 40 MG GRANULES PACKET PO SCH (11:53)
[2019-02-25] MEDS: Isosorbide Mononitrate 20 MG TAB PO SCH (11:53)
[2019-02-25] MEDS: Acetaminophen 325 MG TAB PO PRN ×2 (13:38→20:53)
[2019-02-25] MEDS: HumaLOG 300 UNITS/3 ML VIAL SC PRN (13:50)
[2019-02-25] MEDS: Atorvastatin Calcium 40 MG TAB PO SCH (20:53)
[2019-02-26] MEDS: Levothyroxine Sodium 50 MCG TAB PO SCH (05:29)
[2019-02-26] MEDS: Isosorbide Mononitrate 20 MG TAB PO SCH (10:20)
[2019-02-26] MEDS: Clopidogrel Bisulfate 75 MG TAB PO SCH (10:20)
[2019-02-26] MEDS: Pantoprazole 40 MG GRANULES PACKET PO SCH (10:20)
[2019-02-26] MEDS: Polyethylene Glycol 3350 17 GM Packet PO SCH (10:20)
[2019-02-26] MEDS: Aspirin Chewable 81 MG TAB PO SCH (10:20)
[2019-02-26] MEDS: Lisinopril 10 MG TAB PO SCH (10:20)
[2019-02-26] MEDS: Ezetimibe 10 MG TAB PO SCH (10:21)
[2019-02-26] MEDS: metFORMIN 500 MG TAB PO SCH ×2 (10:21→20:07)
[2019-02-26] MEDS: Docusate 100 MG CAP PO SCH ×2 (10:21→20:07)
[2019-02-26] MEDS: VIMPAT 50 MG PO SCH ×2 (10:25→20:54)
[2019-02-26] MEDS: HumaLOG 300 UNITS/3 ML VIAL SC PRN (18:24)
[2019-02-26] MEDS: Acetaminophen 325 MG TAB PO PRN (20:06)
[2019-02-26] MEDS: Atorvastatin Calcium 40 MG TAB PO SCH (20:07)
[2019-02-27] MEDS: Levothyroxine Sodium 50 MCG TAB PO SCH ×2 (06:13→09:44)
[2019-02-27] MEDS: Polyethylene Glycol 3350 17 GM Packet PO SCH (09:28)
[2019-02-27] MEDS: Isosorbide Mononitrate 20 MG TAB PO SCH (09:29)
[2019-02-27] MEDS: VIMPAT 50 MG PO SCH ×2 (09:29→20:44)
[2019-02-27] MEDS: Aspirin Chewable 81 MG TAB PO SCH (09:37)
[2019-02-27] MEDS: Pantoprazole 40 MG GRANULES PACKET PO SCH (09:37)
[2019-02-27] MEDS: Ezetimibe 10 MG TAB PO SCH (09:39)
[2019-02-27] MEDS: Lisinopril 10 MG TAB PO SCH (09:39)
[2019-02-27] MEDS: metFORMIN 500 MG TAB PO SCH ×2 (09:39→20:45)
[2019-02-27] MEDS: Clopidogrel Bisulfate 75 MG TAB PO SCH (09:39)
[2019-02-27] MEDS: Docusate 100 MG CAP PO SCH ×2 (09:43→20:45)
[2019-02-27] MEDS: Atorvastatin Calcium 40 MG TAB PO SCH (20:44)
[2019-02-27] MEDS: Acetaminophen 325 MG TAB PO PRN (20:44)
[2019-02-28] MEDS: Levothyroxine Sodium 50 MCG TAB PO SCH (06:18)
[2019-02-28] MEDS: Docusate 100 MG CAP PO SCH ×3 (09:48→20:35)
[2019-02-28] MEDS: metFORMIN 500 MG TAB PO SCH ×2 (09:48→20:35)
[2019-02-28] MEDS: Ezetimibe 10 MG TAB PO SCH (09:48)
[2019-02-28] MEDS: Isosorbide Mononitrate 20 MG TAB PO SCH (09:48)
[2019-02-28] MEDS: Aspirin Chewable 81 MG TAB PO SCH (09:48)
[2019-02-28] MEDS: Lisinopril 10 MG TAB PO SCH (09:49)
[2019-02-28] MEDS: Clopidogrel Bisulfate 75 MG TAB PO SCH (09:49)
[2019-02-28] MEDS: Pantoprazole 40 MG GRANULES PACKET PO SCH (09:49)
[2019-02-28] MEDS: Acetaminophen 325 MG TAB PO PRN ×2 (09:49→18:22)
[2019-02-28] MEDS: Polyethylene Glycol 3350 17 GM Packet PO SCH (09:50)
[2019-02-28] MEDS: VIMPAT 50 MG PO SCH ×2 (10:01→20:34)
[2019-02-28] MEDS: HumaLOG 300 UNITS/3 ML VIAL SC PRN (12:55)
[2019-02-28] MEDS: Atorvastatin Calcium 40 MG TAB PO SCH (20:35)
[2019-03-01] MEDS: Levothyroxine Sodium 50 MCG TAB PO SCH (05:48)
[2019-03-01] MEDS: Isosorbide Mononitrate 20 MG TAB PO SCH (08:49)
[2019-03-01] MEDS: metFORMIN 500 MG TAB PO SCH ×2 (08:49→20:28)
[2019-03-01] MEDS: Ezetimibe 10 MG TAB PO SCH (08:50)
[2019-03-01] MEDS: Docusate 100 MG CAP PO SCH ×2 (08:50→20:29)
[2019-03-01] MEDS: Clopidogrel Bisulfate 75 MG TAB PO SCH (08:50)
[2019-03-01] MEDS: Aspirin Chewable 81 MG TAB PO SCH (08:50)
[2019-03-01] MEDS: Pantoprazole 40 MG GRANULES PACKET PO SCH (08:50)
[2019-03-01] MEDS: Lisinopril 10 MG TAB PO SCH (08:50)
[2019-03-01] MEDS: VIMPAT 50 MG PO SCH ×2 (08:54→20:28)
[2019-03-01] MEDS: Polyethylene Glycol 3350 17 GM Packet PO SCH (10:27)
[2019-03-01] MEDS: Acetaminophen 325 MG TAB PO PRN ×2 (12:37→20:28)
[2019-03-01] MEDS: Atorvastatin Calcium 40 MG TAB PO SCH (20:28)
[2019-03-02] MEDS: Polyethylene Glycol 3350 17 GM Packet PO SCH (09:05)
[2019-03-02] MEDS: Pantoprazole 40 MG GRANULES PACKET PO SCH (09:05)
[2019-03-02] MEDS: Isosorbide Mononitrate 20 MG TAB PO SCH (09:05)
[2019-03-02] MEDS: Ezetimibe 10 MG TAB PO SCH (09:06)
[2019-03-02] MEDS: Docusate 100 MG CAP PO SCH ×2 (09:06→20:04)
[2019-03-02] MEDS: Lisinopril 10 MG TAB PO SCH (09:06)
[2019-03-02] MEDS: Clopidogrel Bisulfate 75 MG TAB PO SCH (09:06)
[2019-03-02] MEDS: metFORMIN 500 MG TAB PO SCH ×2 (09:07→20:04)
[2019-03-02] MEDS: Aspirin Chewable 81 MG TAB PO SCH (09:07)
[2019-03-02] MEDS: VIMPAT 50 MG PO SCH ×2 (09:12→20:04)
[2019-03-02] MEDS: Levothyroxine Sodium 50 MCG TAB PO SCH (09:14)
[2019-03-02] MEDS: Acetaminophen 325 MG TAB PO PRN (20:04)
[2019-03-02] MEDS: Atorvastatin Calcium 40 MG TAB PO SCH (20:04)
[2019-03-03] MEDS: Levothyroxine Sodium 50 MCG TAB PO SCH (06:21)
[2019-03-03 06:32] VITALS: BP 132/78; TEMP 98.1
[2019-03-03] MEDS: Lisinopril 10 MG TAB PO SCH (08:45)
[2019-03-03] MEDS: Pantoprazole 40 MG GRANULES PACKET PO SCH (08:45)
[2019-03-03] MEDS: Isosorbide Mononitrate 20 MG TAB PO SCH (08:45)
[2019-03-03] MEDS: Clopidogrel Bisulfate 75 MG TAB PO SCH (08:45)
[2019-03-03] MEDS: Ezetimibe 10 MG TAB PO SCH (08:45)
[2019-03-03] MEDS: Docusate 100 MG CAP PO SCH (08:45)
[2019-03-03] MEDS: Aspirin Chewable 81 MG TAB PO SCH (08:45)
[2019-03-03] MEDS: metFORMIN 500 MG TAB PO SCH (08:48)
[2019-03-03] MEDS: Polyethylene Glycol 3350 17 GM Packet PO SCH (08:48)
[2019-03-03] MEDS: VIMPAT 50 MG PO SCH (08:53)
--- NOTE | 2019-03-04 01:55 | DIS ---
DATE OF ADMISSION: 02/11/2019 DATE OF DISCHARGE: 03/03/2019 ADMISSION DIAGNOSES: Right surgical neck fracture of humerus, status post fall. SECONDARY DIAGNOSES: Dementia, seizure disorder, type 2 diabetes mellitus, hypertension, dyslipidemia, constipation, non-Hodgkin lymphoma and history of cerebrovascular accident. PROCEDURES PERFORMED: 1. 02/08/2019, right humerus showed surgical neck fracture. 2. 02/08/2019, brain CT showed no intracranial posttraumatic sequelae, age-appropriate atrophy, chronic small-vessel ischemic changes to the white matter, stable malacic change involving the left occipital lobe and right parietal lobe. 3. 02/08/2019, right knee x-ray showed no acute findings. 4. 02/08/2019, pelvis x-ray showed slightly lower sensitivity study showing no acute findings. 5. 02/08/2019, left hand x-ray showed degenerative changes but no acute findings. 6. 02/08/2019, chest x-ray showed shallow inspiration which reduces sensitivity particularly in the right base, fracture of the surgical neck of the right humerus. HOSPITAL COURSE: An 88-year-old female with underlying dementia, was found down at home for which she was brought to the [facility] Emergency Department. Subsequent imaging revealed the right surgical neck fracture of her humerus. Due to her compromised functional status, she was admitted for pain control and further assessment. The patient did have orthopedic consultation, who recommended conservative therapy without surgical intervention. The patient was provided orthopedic restrictions and was able to participate with Physical Therapy and Occupational Therapy. However, this was on a limited basis secondary to her intermittent lack of participation in regard to her underlying dementia. Due to her overall lack of improvements, discussion was had with daughter, Sujatha, who is her medical power of attorney lawyer, and also her [id number], who the patient typically lives with and provides care; these discussions resulted in plan to transition the patient to [facility] for long-term stay. DISPOSITION: The patient was discharged to [facility] for a long-term stay. DISCHARGE MEDICATIONS: Include: 1. DuoNeb 3 mL q.6 hours p.r.n. 2. Aspirin 81 mg daily. 3. Atorvastatin 40 mg at bedtime. 4. Plavix 75 mg daily. 5. Zetia 10 mg daily. 6. [place] 5-325 q.6 hours p.r.n. 7. Isosorbide mononitrate 60 mg daily. 8. Levothyroxine 50 mcg daily. 9. Lisinopril 10 mg daily. 10. Metformin 1000 mg b.i.d. 11. Protonix 40 mg daily. 12. Seroquel 12.5 mg q.a.m. and 50 mg at bedtime. 13. Zoloft 50 mg daily. 14. Vimpat 50 mg b.i.d. Job ID: [id number] MTDD
== END 2019-03-03 14:37 | DRG 560 ==
LOC: BURMED 23:17
PROVIDERS: ADMIT Family Medicine; ATTEND Family Medicine
DX: S42.211D Unspecified displaced fracture of surgical neck of right humerus, subsequent encounter for fracture with routine healing (principal); I13.0 Hypertensive heart and chronic kidney disease with heart failure and stage 1 through stage 4 chronic kidney disease, or unspecified chronic kidney disease; I69.353 Hemiplegia and hemiparesis following cerebral infarction affecting right non-dominant side; W19.XXXD Unspecified fall, subsequent encounter; F03.90 Unspecified dementia, unspecified severity, without behavioral disturbance, psychotic disturbance, mood disturbance, and anxiety; E78.5 Hyperlipidemia, unspecified; K59.00 Constipation, unspecified; I10 Essential (primary) hypertension; E11.9 Type 2 diabetes mellitus without complications; I50.9 Heart failure, unspecified; H54.40 Blindness, one eye, unspecified eye; Z79.82 Long term (current) use of aspirin; Z79.02 Long term (current) use of antithrombotics/antiplatelets; Z79.899 Other long term (current) drug therapy; Z90.710 Acquired absence of both cervix and uterus
CPT/HCPCS: 36416; J7620

== ENCOUNTER 2019-03-14 14:32 | Emergency (ER) | payer MEDICARE, OTHER ==
--- NOTE | 2019-03-14 20:43 | CT ---
CT OF THE BRAIN WITHOUT CONTRAST 03/14/19 Comparison is with the prior study of 02/08/19. There has been no adverse interval change. Diffuse severe atrophy with chronic ischemic changes and p articularly old strokes in the left occipital region are noted. No intracranial bleeding or extra-axi al hematoma was seen. There is expected compensatory dilatation of the ventricles. The calvarium appe ars intact. The sphenoid sinus and mastoid air cells are clear, though the right mastoids are under a erated. IMPRESSION: Severe chronic ischemic changes but no acute intracranial finding. POS: HOME
== END 2019-03-14 15:30 ==
LOC: BURERS 14:32
DX: S09.90XA Unspecified injury of head, initial encounter (principal); F03.90 Unspecified dementia, unspecified severity, without behavioral disturbance, psychotic disturbance, mood disturbance, and anxiety; E11.9 Type 2 diabetes mellitus without complications; Z86.73 Personal history of transient ischemic attack (TIA), and cerebral infarction without residual deficits; Z87.891 Personal history of nicotine dependence; Z79.899 Other long term (current) drug therapy; Z79.84 Long term (current) use of oral hypoglycemic drugs; Z79.82 Long term (current) use of aspirin; W19.XXXA Unspecified fall, initial encounter
CPT/HCPCS: 70450